=== PATIENT | female | born 1945 | race African-American/Black ===

== ENCOUNTER 2017-08-06 10:12 | Emergency (ER) | payer MEDICARE, MEDICAID ==
[~2017-08-06] VITALS: Ht 160 cm; Wt 120.0 kg
[~2017-08-06 10:12] MED LIST: AMLO10TA80 PO; CARB200T PO; CIPR500S3 PO; KEPP500 PO; [UNRECOGNIZED DRUG - OTHER]; keppra
[2017-08-06] MEDS ORDERED: MORPHINE SULFATE 10 MG/ML CPJ IV ONE (11:00)
[2017-08-06] MEDS ORDERED: KETOROLAC 30MG/ML VIAL IM ONE (11:00)
[2017-08-06 13:28] VITALS: BP 137/71
== END 2017-08-06 14:57 | disposition home or self-care (01) ==
LOC: ER 10:12
DX: S52.122A Displaced fracture of head of left radius, initial encounter for closed fracture (principal); S40.012A Contusion of left shoulder, initial encounter; I10 Essential (primary) hypertension; E11.9 Type 2 diabetes mellitus without complications; W01.0XXA Fall on same level from slipping, tripping and stumbling without subsequent striking against object, initial encounter; Y93.89 Activity, other specified; Y92.89 Other specified places as the place of occurrence of the external cause; Y99.8 Other external cause status
CPT/HCPCS: 29125; 73030; 73080; 73110; 96372; 99284; J1885

== ENCOUNTER 2018-05-19 19:56 | Emergency (ER) | payer MEDICARE, MEDICAID ==
[~2018-05-19] VITALS: Ht 162.6 cm; Wt 116.0 kg
[2018-05-19] MEDS ORDERED: IBUPROFEN 600MG TABLET PO ONE (22:45)
[2018-05-19 22:49] VITALS: BP 171/100
== END 2018-05-20 00:45 | disposition home or self-care (01) ==
LOC: ER 19:56
DX: S80.12XA Contusion of left lower leg, initial encounter (principal); J45.909 Unspecified asthma, uncomplicated; I10 Essential (primary) hypertension; R56.9 Unspecified convulsions; Z90.710 Acquired absence of both cervix and uterus; Z79.899 Other long term (current) drug therapy; X58.XXXA Exposure to other specified factors, initial encounter; Y93.89 Activity, other specified; Y92.89 Other specified places as the place of occurrence of the external cause; Y99.8 Other external cause status
CPT/HCPCS: 73562; 93971; 99284

== ENCOUNTER 2019-01-02 02:29 | Emergency (ER) | payer MEDICARE, MEDICAID ==
[~2019-01-02] VITALS: Ht 160 cm; Wt 100.0 kg
[2019-01-02] MEDS ORDERED: IBUPROFEN 600MG TABLET PO STA (04:14)
[2019-01-02 04:48] LABS: CHLORIDE 105 mEq/L (98-107)
[2019-01-02 04:52] LABS: ETHANOL BLOOD < 10 mg/dL
[2019-01-02 05:18] LABS: HEMATOCRIT. 37.3 % (36.0-48.0); MEAN CORPUSCULAR HEMOGLOBIN 27.7 pg (28.0-32.0); MEAN CORPUSCULAR VOLUME 85.9 fL (81.0-99.0); MEAN PLATELET VOLUME 8.6 fl (7.4-10.4); PLATELET 263 x1000/uL (130-400); RED BLOOD CELL COUNT 4.34 mill/uL (4.2-5.4); RED CELL DISTRIBUTION WIDTH 15.1 % (11.6-14.6)
[2019-01-02 06:04] LABS: PLATELET ESTIMATE NORMAL
[2019-01-02 07:10] VITALS: BP 169/109
== END 2019-01-02 07:11 | disposition home or self-care (01) ==
LOC: ER 02:29
DX: S42.294A Other nondisplaced fracture of upper end of right humerus, initial encounter for closed fracture (principal); E11.9 Type 2 diabetes mellitus without complications; I10 Essential (primary) hypertension; D32.0 Benign neoplasm of cerebral meninges; G40.909 Epilepsy, unspecified, not intractable, without status epilepticus; J45.909 Unspecified asthma, uncomplicated; Z90.710 Acquired absence of both cervix and uterus; W01.0XXA Fall on same level from slipping, tripping and stumbling without subsequent striking against object, initial encounter; Y93.89 Activity, other specified; Y92.018 Other place in single-family (private) house as the place of occurrence of the external cause
CPT/HCPCS: 29240; 36415; 73030; 73060; 80320; 99284; A4565; G0480

== ENCOUNTER 2020-08-22 12:01 | Emergency (ER) | payer MEDICARE, MEDICAID ==
[~2020-08-22] VITALS: Ht 165.1 cm; Wt 109.0 kg
[2020-08-22] MEDS ORDERED: SODIUM CHLORIDE 0.9% 1,000 ML IV ONE (12:45)
[2020-08-22] MEDS ORDERED: AMLODIPINE 5MG TABLET PO ONE (13:30)
[2020-08-22] MEDS ORDERED: LEVETIRACETAM 500MG TABLET PO ONE (13:30)
[2020-08-22] MEDS ORDERED: CARBAMAZEPINE 200MG TABLET PO ONE (13:30)
[2020-08-22] MEDS ORDERED: HYDROCHLOROTHIAZIDE 25MG TABLET PO ONE (13:30)
[2020-08-22] MEDS ORDERED: DIPHENHYDRAMINE 25MG CAPSULE PO ONE (14:15)
[2020-08-22 14:30] LABS: BASOPHILS % 0.8 % (0.0-2.0); EOSINOPHILS % 2.7 % (0.0-5.0); HEMATOCRIT. 34.7 % (36.0-48.0); LYMPHOCYTES % 26.6 % (20.0-50.0); MEAN CORPUSCULAR HEMOGLOBIN 27.2 pg (28.0-32.0); MEAN CORPUSCULAR VOLUME 86.2 fL (81.0-99.0); MEAN PLATELET VOLUME 9.2 fl (7.4-10.4); MONOCYTES % 9.8 % (2.0-8.0); NEUTROPHILS % 60.1 % (40.0-76.0); PLATELET 233 x1000/uL (130-400); RED BLOOD CELL COUNT 4.03 mill/uL (4.2-5.4); RED CELL DISTRIBUTION WIDTH 15.9 % (11.6-14.6)
[2020-08-22 14:38] LABS: CHLORIDE 104 mEq/L (98-107)
[2020-08-22 15:07] VITALS: BP 163/90
== END 2020-08-22 15:22 | disposition home or self-care (01) ==
LOC: ER 12:12
DX: Z76.0 Encounter for issue of repeat prescription (principal); I10 Essential (primary) hypertension; J45.909 Unspecified asthma, uncomplicated; R56.9 Unspecified convulsions; Z90.710 Acquired absence of both cervix and uterus
CPT/HCPCS: 36415; 80053; 84484; 85025; 93005; 96360; 99284; J7030